=== PATIENT | male | born 1980 | race Caucasian/White ===

== ENCOUNTER 2020-11-10 14:16 | Emergency (ER) | payer OTHER, SELFPAY ==
--- NOTE | 2020-11-10 14:30 | ED.GENADULT ---
HPI - General Adult General Chief complaint: Dizziness Stated complaint: dizzy pressure behind eyes Time Seen by Provider: 11/10/20 14:30 Source: patient Mode of arrival: ambulatory Limitations: no limitations History of Present Illness HPI narrative: 40-year-old male patient presents to the [facility] with complaints of dizziness that has been intermittent for the past month. Patient denies any vision changes. Patient states that the dizziness typically occurs when changing positions. Denies taking anything for except for Tylenol. Denies any chest pain or shortness of breath at this time. Patient states he does get nausea at times when this occurs but denies vomiting or diarrhea. Denies any fevers. Related Data Allergies Allergy/AdvReac Type Severity Reaction Status Date / Time bee venom protein (honey bee) Allergy Unknown Verified 11/10/20 14:51 [bees] Review of Systems Review of Systems: Narrative: CONSTITUTIONAL: Denies fever, chills, or sweats. EYES: Denies visual changes, redness, or discharge. ENT: Denies rhinorrhea, congestion, sore throat, or otalgia. CARDIOVASCULAR: Denies chest pain, palpitations, or edema. RESPIRATORY: Denies cough or dyspnea. GASTROINTESTINAL: Denies abdominal pain, nausea, vomiting, or diarrhea. GENITOURINARY: Denies dysuria or hematuria. SKIN: Denies rash or itching. MUSCULOSKELETAL: Denies back pain, joint pain, or myalgia. NEUROLOGIC: Denies headache, numbness, or weakness. Positive dizziness intermittently x1 month PSYCHIATRIC: Denies anxiety or depression. PMFSH Social History Social History Gender identity (if verbalized by the patient): Male Comments At the time of my signature I agree with nursing past medical history, surgical, social, and family history. There is no relevant family history pertinent to the presenting complaint. Exam Narrative: Exam Narrative: GENERAL: Well-appearing, well-nourished, and in no acute distress. HEAD: Normocephalic, atraumatic. EYES: PERRLA and EOMI. ENT: Nares clear, no rhinorrhea or epistaxis. Mucous membranes moist. NECK: Supple. No lymphadenopathy CHEST: Clear to auscultation. No respiratory distress. HEART: Regular rate and rhythm. No murmur heard. Normal peripheral pulses. ABDOMEN: Soft, nontender, nondistended, normal active bowel sounds. EXTREMITIES: Normal range of motion. No edema. SKIN: Warm, dry, no rash. NEURO: Alert and oriented x4, GCS 15. Cranial nerves II through XII grossly intact. No focal neurological deficits. Normal muscle strength and tone. Normal deep tendon reflexes. Negative Babinski, normal finger to nose coordination he had normal heel to vargas glide. Speech is clear. Normal gait. Negative Romberg and no pronator drift. Negative Warren-Hallpike maneuver. Patient does have worsening symptoms when he is sitting back up after the Warren-Hallpike maneuver. Course Reevaluation(s) Reevaluation #1: Reevaluated patient after receiving the meclizine. Patient states he is not feeling worse may be a little bit better. Patient denies any dizziness currently. Offered to send patient to the ER however he refused at this time. Discussed with patient that we will go ahead and send him home with some meclizine as well as some Zofran as well as some exercises to help with positional vertigo. Discussed with patient that if his symptoms worsen despite the therapies we have discharged him home with today I highly recommend going to the ER for further evaluation. Patient verbalized understanding of this. Date: 11/10/20 Time: 15:36 Vital Signs Vital signs: Vital Signs Temperature 36.5 C 11/10/20 14:43 Pulse Rate 79 11/10/20 14:43 Respiratory Rate 18 11/10/20 14:43 Blood Pressure 142/91 H 11/10/20 14:43 Pulse Oximetry 100 11/10/20 14:43 Temperature 36.5 C 11/10/20 14:43 Pulse Rate 79 11/10/20 14:43 Respiratory Rate 18 11/10/20 14:43 Blood Pressure 142/91 H
[2020-11-10 14:43] VITALS: BP 142/91; PULSE 79; RESP 18; TEMP 36.5; O2SAT 100
--- NOTE | 2020-11-10 14:48 | ECG_ITS ---
Measurements Intervals [place] Rate: 73 P: 43 MA: 169 QRS: 60 QRSD: 102 T: 74 QT: 387 QTc: 429 Interpretive Statements SINUS RHYTHM INCOMPLETE RIGHT BUNDLE BRANCH BLOCK CANNOT RULE OUT SEPTAL INFARCT, AGE INDETERMINATE PEAKED T WAVES- CONSIDER HYPERKALEMIA OR ISCHEMIA ABNORMAL ECG Electronically Signed On 11-10-2020 16:44:49 CDT by Joel Ruvalcaba D.O.
[2020-11-10] MEDS: MECLIZINE HCL 25 MG TABLET PO (14:52)
== END 2020-11-10 15:42 | disposition home or self-care (01) ==
PROVIDERS: Emergency Provider Nurse Practitioner Family
DX: H81.11 Benign paroxysmal vertigo, right ear (principal); I45.10 Unspecified right bundle-branch block; R94.31 Abnormal electrocardiogram [ECG] [EKG]
CPT/HCPCS: 93005; 99203; A9270; G0463